=== PATIENT | female | born 1970 | race Two or more races ===

== ENCOUNTER 2021-02-10 10:37 | Outpatient (CLI) | payer OTHER | END 2021-02-10 15:27 | disposition home or self-care (01) | LOC: SONOGRAMA 10:37 | PROVIDERS: ATTEND Pathology Anatomic Pathology & Clinical Pathology | DX: E04.2 Nontoxic multinodular goiter (principal) ==

== ENCOUNTER 2023-11-10 20:55 | Emergency (ER) | payer OTHER ==
[~2023-11-10] VITALS: Ht 165.1 cm; Wt 66.2 kg
[2023-11-10] MEDS ORDERED: SYNTHROID75 MCG PO (21:04)
[2023-11-10] MEDS ORDERED: DEXAMETHASONE SODIUM PHOSPHATE 4 MG/ML VIAL IM STA (21:33)
[2023-11-10] MEDS ORDERED: ORPHENADRINE CITRATE 30 MG/ML AMPUL IM STA (21:34)
[2023-11-10] MEDS ORDERED: DEXAMETHASONE SODIUM PHOSPHATE 4 MG/ML VIAL ONE (22:47)
[2023-11-10] MEDS ORDERED: ORPHENADRINE CITRATE 30 MG/ML AMPUL ONE (22:47)
== END 2023-11-10 23:12 | disposition home or self-care (01) ==
LOC: ER 20:57
DX: S00.93XA Contusion of unspecified part of head, initial encounter (principal); S40.012A Contusion of left shoulder, initial encounter; W18.39XA Other fall on same level, initial encounter; Y93.K1 Activity, walking an animal; Y92.89 Other specified places as the place of occurrence of the external cause; Y99.9 Unspecified external cause status